=== PATIENT | female | born 1970 | race Two or more races ===

== ENCOUNTER 2021-02-24 16:56 | Emergency (ER) | payer OTHER ==
[2021-02-24 17:14] VITALS: BP 140/96; PULSE 83; TEMP 98.1; BMI 33.7
== END 2021-02-24 18:52 | disposition home or self-care (01) ==
LOC: FER 16:56
DX: M25.562 Pain in left knee (principal); R07.9 Chest pain, unspecified; W01.0XXA Fall on same level from slipping, tripping and stumbling without subsequent striking against object, initial encounter; Y92.010 Kitchen of single-family (private) house as the place of occurrence of the external cause; Y93.01 Activity, walking, marching and hiking
CPT/HCPCS: 71046-TC-FY; 73562-TC-RT-FY; 99284-25

== ENCOUNTER 2022-09-18 09:30 | Emergency (ER) | payer OTHER ==
[2022-09-18 09:34] VITALS: BP 139/70; PULSE 83; RESP 18; TEMP 97
[2022-09-18] MEDS ORDERED: METHOCARBAMOL 500 MG TABLET PO ONE (10:04)
[2022-09-18] MEDS ORDERED: KETOROLAC TROMETHAMINE 30 MG/1 ML VIAL IM ONE (10:04)
[2022-09-18] MEDS ORDERED: KETOROLAC TROMETHAMINE 30 MG/1 ML VIAL ONE (10:07)
[2022-09-18] MEDS ORDERED: METHOCARBAMOL 500 MG TABLET ONE (10:07)
== END 2022-09-18 10:31 | disposition home or self-care (01) ==
LOC: JERFT 09:30
PROC: 3E023GC Introduction of Other Therapeutic Substance into Muscle, Percutaneous Approach (ICD-10-PCS; principal; 2022-09-18)
DX: M54.9 Dorsalgia, unspecified (principal); V49.40XA Driver injured in collision with unspecified motor vehicles in traffic accident, initial encounter
CPT/HCPCS: 99284-25